=== PATIENT | male | born 1940 | race Caucasian/White ===

== ENCOUNTER → 2016-10-11 | Outpatient (CLI) | payer OTHER ==
[~2016-10-11] MED LIST: ATOR10TA88 PO; LISI10TA PO; MULT-506 PO; TAMS0.4C38 PO
[2016-10-11 12:25] LABS: BASO % 0.5 %; BASO ABS # 0.03 K/uL (0-0.2); COMPLETE YES; EOS % 1.9 %; HEMATOCRIT 44.2 % (42-52); IG% 0.3 %; LYMPH % 20.4 %; LYMPH ABS # 1.27 K/uL (1.2-3.4); MEAN CELL VOLUME 88.6 fL (80-100); MEAN CORPUSCULAR HEMOGLOBIN 31.3 pg (25-34); MEAN CORPUSCULAR HGB CONC 35.3 g/dl (32-36); MONO % 9.8 %; NEUT % 67.1 %; PLATELET COUNT 213 K/uL (130-400); RED BLOOD COUNT 4.99 M/uL (4.7-6.1); WHITE BLOOD COUNT 6.24 K/uL (4.8-10.8)
[2016-10-11 12:48] LABS: ALT/SGPT 22 U/L (12-78); BLOOD UREA NITROGEN 17 mg/dl (7-18); BUN/CREATININE RATIO 15.1 (10-20); CALCIUM 9.7 mg/dl (8.5-10.1); CARBON DIOXIDE 24 mmol/L (21-32); CHLORIDE 106 mmol/L (98-107); CHOLESTEROL 216 mg/dl (0-200); GLUCOSE 99 mg/dl (70-99); POTASSIUM 4.1 mmol/L (3.5-5.1); SODIUM 137 mmol/L (136-145); TRIGLYCERIDES 410 mg/dl (0-150)
[2016-10-11 12:58] LABS: ALB/GLOB RATIO 0.9 (0.9-2); ALKALINE PHOSPHATASE 60 U/L (45-117); AST/SGOT 17 U/L (15-37); CHOLESTEROL/HDL RATIO 6.4; HDL CHOLESTEROL 34 mg/dl
== END | disposition home or self-care (01) ==
LOC: C.LABPBG 10:49
PROVIDERS: ATTEND Urology
DX: N52.9 Male erectile dysfunction, unspecified (principal); R35.0 Frequency of micturition; E78.5 Hyperlipidemia, unspecified; I10 Essential (primary) hypertension; R53.83 Other fatigue

== ENCOUNTER → 2017-04-25 | Day surgery (SDC) | payer OTHER ==
[2017-04-23 07:54] VITALS: Ht 165.1 cm; Wt 69.5 kg
[~2017-04-25] VITALS: Ht 165.1 cm; Wt 69.5 kg
[~2017-04-25] MED LIST changes: +500ML BSS 0.3ML EPI 1:1000PF IRRIG ONE; +ACETAMINOPHEN 325 MG TAB PO PRN; +AMVISC PLUS 0.8ML SYRINGE INT OCU ONE; -ATOR10TA88 PO; +ATROPINE SULFATE 0.1 MG/ML 5ML SYR IV PRN; +AcetaZOLAMIDE 250 MG TAB PO SCH; +BETAXOLOL HCL 0.25% OP SUSP PER DROP CHARGE OPR SCH; +BRIMONIDINE TART 0.2% OP SOLN PER DROP CHARGE ONE; +BSS FLUSH ONE; +ENDOCOAT 0.85ML SYRINGE INT OCU ONE; +EpHEDrine SULFATE INJ 50 MG/ML AMP IV PRN; +EpINEphrine INJ 1MG/ML AMP 1 MG/ML AMP ONE; +LACTATED RINGER'S 1000ML 500 ML IV SCH; +LIDOCAINE 4% OP SOLN DROP CHARGE ONE; +LIDOCAINE 4% OP SOLN DROP CHARGE OPR SCH; +LIDOCAINE HCL 1% MPF 2 ML VIAL ONE; -LISI10TA PO; +LOSA50TA6 PO; +MIDAZOLAM HCL 1 MG/ML 2ML VIAL ONE; +MIX: 4ML BSS 1ML EPI 1:1000 PF INSTIL ONE; +MOXIFLOXACIN OPH SOLN PER DROP CHARGE ONE; +OCUCOAT 1 ML SOLN IO ONE; +ONDANSETRON INJ 2 MG/ML 2 ML VIAL IV PRN; +PHENYLEPHRINE HCL 10% OP SOLN PER DROP CHARGE OPR SCH; +POVIDONE-IODINE OP SOLN 30 ML BTL ONE; +PROPARACAINE 0.5% OP SOLN PER DROP CHARGE OPR SCH; +PROPARACAINE HCL 0.5% OP SOLN 15 ML BTL OPR ONE; +TOBRAMYCIN/DEXAMETHASONE OPH OINT PER APPLN CHARGE ONE
--- NOTE | 2017-04-25 08:42 | History & Physical Bridge - [place] ---
H&P Re-Evaluation Bridge Note: I have examined the patient, reviewed the History & Physical and in the interval since the performance of the History & Physical I have noted the following changes of clinical significance: Planning Femto Laser No changes noted
[2017-04-25] MEDS: PHENYLEPHRINE HCL 2.5% OP SOLN PER DROP CHARGE OPR SCH ×2 (08:50→08:55)
[2017-04-25] MEDS: TROPICAMIDE 1% OP SOLN PER DROP CHARGE OPR SCH ×2 (08:51→08:56)
[2017-04-25] MEDS: CYCLOPENTOLATE HCL 1% OP SOLN PER DROP CHARGE OPR SCH ×2 (08:52→08:57)
[2017-04-25] MEDS: MOXIFLOXACIN OPH SOLN PER DROP CHARGE OPR SCH ×2 (08:53→09:06)
--- NOTE | 2017-04-25 10:02 | [facility] Operative Report ---
Operative Report Date of Service Apr 25, 2017. Operative Report 1. PREOPERATIVE DIAGNOSIS: Senile nuclear cataract, right eye. 2. POSTOPERATIVE DIAGNOSIS: Senile nuclear cataract, right eye. 3. PROCEDURE: Phacoemulsification of right cataract with posterior chamber lens implant, type Mckay, model [id number], power +20.0 diopters. ANESTHESIA: Local standby. SURGEON: Dr. Lebron. COMPLICATIONS: None. OPERATING TIME: 10 minutes. 4. OPERATION AND FINDINGS: DESCRIPTION OF PROCEDURE: The right pupil was dilated. The patient was transported to the Femto Laser room. The Femto was used to make the primary incision, open the capsule, and break up the lens. The patient was transported to the operating room. The anesthetic was administered using a topical technique. The right eye was prepped and draped. A speculum was placed. A clear corneal incision was formed. The chamber was filled with Amvisc Plus and Endocoat. Epinephrine solution was used. A paracentesis was placed. A capsulorrhexis was performed. The nucleus was hydrodissected. The lens was removed with phacoemulsification. Time was 2.31 seconds. The aspiration unit was used to remove the cortex. The capsule was filled with Amvisc Plus. The lens implant was folded and placed into the capsule. The lens implant was rotated to the correct position. The incisions were hydrated. The Amvisc was aspirated. The wounds were secure. The chamber was deep. The pupil was round. Brimonidine, TobraDex ointment and Vigamox solution were placed. The speculum was removed. The patient was returned to the Recovery Room in stable condition. I attest to the content of the Intraoperative Record and any orders documented therein. Any exceptions are noted below. The scribe's documentation has been prepared in my presence, under my direction and personally reviewed by me in its entirety. I confirm that the note above accurately reflects all work, treatment, procedures, and medical decision making performed by me. I personally scribed for Gray Lebron M.D. ([email or web address]) on 04/25/17 at 10:02. Electronically submitted by Carol Hernández ([email or web address]).
[2017-04-25 10:04] VITALS: TEMP 36.6
--- NOTE | 2017-04-25 10:05 | Discharge Instructions-SurgCtr ---
Discharge Instructions Date of Service Apr 25, 2017. Visit Reason for Visit: Cataract Right Eye Discharge Discharge Diagnosis / Problem: lens implant right eye Discharge Goals Goal(s): Improve function Activity Recommendations Activity Limitations: resume your previous activity Lifting Limitations: no more than 10 pounds Exercise/Sports Limitations: gradually increase as tolerated May Resume Sexual Activity: when tolerated Shower/Bathe: tomorrow Driving or Machine Use: resume 1 day after discharge Anesthesia . Post Anesthesia Instructions: If you have had General Anesthesia or IV Sedation: * Do not drive today. * Resume driving when surgeon permits. * Do not make important decisions or sign legal documents today. * Call surgeon for: 1. Temperature elevations greater than 101 degrees F. 2. Uncontrollable pain. 3. Excessive bleeding. 4. Persistent nausea and vomiting. 5. Medication intolerance (nausea, vomiting or rash). * For nausea and vomiting use only clear liquids such as: tea, soda, bouillon until nausea subsides, then gradually increase diet as tolerated. * If you have any concerns or questions, call your surgeon's office. If physician is unavailable and it is an emergency, call 911 or go to the nearest emergency room. . Instructions / Follow-Up Instructions / Follow-Up ACTIVITY RECOMMENDATIONS: * Light activities. * Mild irritation and blurred vision are common for the first few days. * You may walk outside, read, watch television. * Redness around the white part of the eye is common. MEDICATIONS: Resume previous medications unless instructed otherwise by your surgeon. Start all eye drops at 1 pm today: * Eye drops (today and tomorrow): Prednisone - one drop in operative eye every 3 hours while awake Ofloxacin - one drop in operative eye every 3 hours while awake SPECIAL CARE INSTRUCTIONS: * Tape plastic shield over eye to sleep at night. Call your doctor at with any concerns or problems. FOLLOW UP VISIT: Follow-up with Dr Lebron at [place] office as scheduled. Diet Recommendations Home Diet: no limitations Procedures Procedures Performed: Right Cataract Phacoemulsification With Intraocular Lens Implant; Toric Lens Pending Studies Studies pending at discharge: no Medical Emergencies . Who to Call and When: Medical Emergencies: If at any time you feel your situation is an emergency, please call 911 immediately. . Non-Emergent Contact Non-Emergency issues call your: Gas Examiner Call Non-Emergent contact if: your pain is not controlled [phone] . . "Provider Documentation" section prepared by Gray Lebron. .
--- NOTE | 2017-04-25 10:22 | Anesthesia Progress Nt - [facility] ---
Anesthesia Post Op Note Date & Time Apr 25, 2017 at 10:22 Vital Signs Pain Intensity: 0 Vital Signs Past 12 Hours Date Time Temp Pulse Resp B/P (MAP) Pulse Ox O2 Delivery O2 Flow Rate FiO2 04/25/17 10:04 36.6 55 16 153/74 (100) 95 Room Air 04/25/17 09:41 60 16 198/102 93 04/25/17 09:36 60 20 180/116 91 04/25/17 08:37 36.4 61 20 157/86 (109) 96 Room Air Notes Mental Status: alert / awake / arousable, participated in evaluation Pt Amnestic to Procedure: Yes Nausea / Vomiting: adequately controlled Pain: adequately controlled Airway Patency, RR, SpO2: stable & adequate BP & HR: stable & adequate Hydration State: stable & adequate Anesthetic Complications: no major complications apparent
[2017-04-25 10:28] VITALS: BP 161/82; PULSE 56; O2SAT 96
== END | disposition home or self-care (01) ==
LOC: X.SURG 08:03
PROVIDERS: ATTEND Specialist
DX: H25.11 Age-related nuclear cataract, right eye (principal); I10 Essential (primary) hypertension; Z80.42 Family history of malignant neoplasm of prostate

== ENCOUNTER 2022-10-06 05:03 | Observation (INO) ==
--- NOTE | 2022-09-07 19:57 | PAT Medication Instructions ---
Medication Instructions Date of Service September 07, 2022 Home Medications Medication Instructions Recorded diclofenac sodium 1 % topical gel 2 g topical QID PRN joint pain 10/20/20 #100 grams sildenafil 50 mg tablet 50 mg PO DAILY PRN sexual activity 09/28/21 #20 tabs cholecalciferol (vitamin D3) 50 mcg (2,000 unit) capsule 50 mcg PO QAM diclofenac sodium 1 % topical gel 2 g topical QID PRN joint pain sllzedvrhkzw-pth-mglnr acid-vit K-lycop 400 mcg-20 mcg-370 mcg tablet (Men's 50 Plus Multivitamin) 1 tab PO QAM sildenafil 50 mg tablet 50 mg PO DAILY PRN sexual activity allopurinol 100 mg tablet 100 mg PO DAILY PRN gout flare up amlodipine 5 mg tablet 5 mg PO QAM hydrochlorothiazide 12.5 mg capsule 12.5 mg PO QAM ASK your surgeon for instructions diclofenac sodium 1 % topical gel 2 g topical QID PRN joint pain STOP taking 24 hours before surgery sildenafil 50 mg tablet 50 mg PO DAILY PRN sexual activity DO NOT take the morning of surgery cholecalciferol (vitamin D3) 50 mcg (2,000 unit) capsule 50 mcg PO QAM zouxeelggzty-aps-iogij acid-vit K-lycop 400 mcg-20 mcg-370 mcg tablet (Men's 50 Plus Multivitamin) 1 tab PO QAM hydrochlorothiazide 12.5 mg capsule 12.5 mg PO QAM Take morning of surgery With a small sip of water, OTHERWISE NOTHING TO EAT OR DRINK AFTER MIDNIGHT: allopurinol 100 mg tablet 100 mg PO DAILY PRN gout flare up (if needed) amlodipine 5 mg tablet 5 mg PO QAM Other Notes If you have any questions please call us at [phone] or [phone] or [phone] or [phone]
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
[2022-10-06] MEDS ORDERED: ACETAMINOPHEN 500 MG TAB PO SCH (06:00)
[2022-10-06] MEDS ORDERED: LR 60ML/HR IV SCH (06:00)
[2022-10-06] MEDS ORDERED: ceFAZolin 2000MG 2,000 MG/15 ML SYR IV SCH (06:00)
[2022-10-06] MEDS ORDERED: TRANEXAMIC ACID 1,000 MG **IV Intra-op IV SCH (06:00)
[2022-10-06] MEDS ORDERED: CeleBREX 200 MG CAP PO SCH (06:00)
[2022-10-06] MEDS ORDERED: FAMOTIDINE 20 MG TAB PO SCH (06:00)
[2022-10-06] MEDS ORDERED: LR 500ML BOLUS, THEN 15ML/HR IV SCH (06:00)
[2022-10-06] MEDS ORDERED: dexAMETHasone**PF** 10 MG/ML VIAL IV SCH (06:00)
[2022-10-06] MEDS ORDERED: METOCLOPRAMIDE HCL 10 MG TABLET PO SCH (06:00)
[2022-10-06] MEDS ORDERED: BUPIVACAINE 0.5 % 5 MG/1 ML PF 10ML VIAL ONE (06:23)
[2022-10-06] MEDS ORDERED: ONDANSETRON INJ 2 MG/ML 2 ML VIAL IV PRN ×2 (06:34→11:18)
[2022-10-06] MEDS ORDERED: fentaNYL citrate PF 100 MCG/2 ML VIAL IV PRN (06:34)
[2022-10-06] MEDS ORDERED: ePHEDrine sulfate 50 MG/ML AMP IV PRN (06:34)
[2022-10-06] MEDS ORDERED: ATROPINE SULFATE 0.1 MG/ML 10ML SYR IV PRN (06:34)
[2022-10-06] MEDS ORDERED: DEXAMETHASONE SOD INJ 4 MG/ML VIAL ONE (06:41)
[2022-10-06] MEDS ORDERED: fentaNYL citrate PF 100 MCG/2 ML VIAL ONE (06:41)
[2022-10-06] MEDS ORDERED: LIDOCAINE 2% 2 ML VIAL/AMP(20MG/ML) INFIL ONE (06:41)
[2022-10-06] MEDS ORDERED: MIDAZOLAM HCL 1 MG/ML 2ML VIAL ONE (06:41)
[2022-10-06] MEDS ORDERED: ONDANSETRON INJ 2 MG/ML 2 ML VIAL ONE (06:41)
[2022-10-06] MEDS ORDERED: PROPOFOL IV EMULSION 10 MG/ML 20 ML VIAL IV ONE (06:41)
--- NOTE | 2022-10-06 06:52 | History & Physical Bridge Note ---
Date of Service October 06, 2022 History & Physical Bridge Note I have examined the patient, reviewed the History & Physical and in the interval since the performance of the History & Physical I have noted the following changes of clinical significance: no changes noted
[2022-10-06] MEDS ORDERED: BUPIVACAINE/EPINEPHRINE 0.5% MPF 1:200,000 30 ML VIAL ONE (06:59)
[2022-10-06] MEDS ORDERED: VANCOMYCIN HCL 1000MG/20ML VIAL ONE (06:59)
[2022-10-06] MEDS ORDERED: ePHEDrine sulfate 50 MG/5 ML SYR ONE (07:13)
[2022-10-06] MEDS ORDERED: PHENYLEPHRINE 100MCG/ML 5ML SYR ONE (07:22)
[2022-10-06] MEDS ORDERED: PHENYLEPHRINE HCL 10 MG/ML VIAL ONE (07:22)
[2022-10-06] MEDS ORDERED: VASOPRESSIN 20 UNIT/ML VIAL ONE (08:03)
--- NOTE | 2022-10-06 08:56 | Operative Report ---
PG Post Operative Report Pre & Post Diagnosis Operation Date: 10/06/22 07:00 Pre-Op Diagnosis: Right Hip Degenerative Joint Disease Post-Op Diagnosis: Right Hip Degenerative Joint Disease I identified the patient and participated in the time-out.: Yes Procedure Operation Date: 10/06/22 07:00 Actual Procedures p Right Total Hip Arthroplasty(Right) - Josep Alvarez MD Surgeon Josep Alvarez MD Physician Extender Shukri Mac PA-C Estimated Blood Loss 100 Findings Consistent with Post-Op Diagnosis Operative findings revealed advanced right hip DJD. He had extensive grade 4 tcuo-vw-vgkg disease the femoral head and acetabulum. He does have significant scarring of the soft tissues around the hip to the previous surgery. Specimens Right femoral head sent for pathology Anesthesia Type Spinal MAC Complications none Disposition Accompanied Patient To Recovery: No Indications Patient is an 82-year-old very active gentleman said a long history of hip problems. He had some unspecified hip surgery as a child. He had some hardware placed and then removed. Over the past several years he is developed increased hip pain and discomfort. He failed all conservative measures. He elected proceed with total hip arthroplasty. Due to his history of surgery on this leg before the intramedullary canal we elect to place a cemented implant to optimize his chance of success. Description of Procedure Operative implants consist of: 1 Biomet G7 size 56 mm acetabular shell. 2. [place] eliminator. 3. 6.5 cancellous acetabular screws 135 mm length 125 mm length. 4. Highly cross-linked polyethylene liner with a 56 mm outer diameter and 36 mm inner diameter. 5. DePuy [place] size 2 standard cemented femoral stem. 6. +5/36 mm metal articular ball. The patient was taken the operating, identified, and placed on the operating table supine position architectures were properly padded. IV antibiotics tried by anesthesia team. A spinal anesthetic had been implemented holding area. Patient was then placed in the left lateral decubitus position. Axillary roll was placed. Stulberg hip positioner was used for positioning. The right hip and leg were then prepped and draped in the usual sterile fashion. A posterior lateral posterior right hip was then performed through a curvilinear incision centered over the greater trochanter. I did use a portion of his pre vious incision at the upper part. Sharp dissection Through the subcutaneous tissue down the IT band gluteal fascia the IT band gluteal fascia incised longitudinally in line with skin incision. The IT band and gluteal fascia then incised longitudinally. I did have to dissect this off the vastus lateralis. The external rotators and the posterior joint capsule were then released and the posterior aspect the hip as a single layer. Great care was taken throughout the procedure protect the sciatic nerve at all times. Hip was internally rotated. A femoral neck osteotomy cut was made just above the lesser trochanter about 5 mm. The femoral head neck was removed and sent for pathology. The femur was retracted anteriorly. Attention drawn the acetabulum. The acetabulum was excised. The pulmonary fat was excised. Sequential reaming the acetabular was then performed again with size 47 and progressing up to a 55. I did use a 56 reamer and then placed a 56 mm Biomet G7 acetabular shell in about 40 degrees lateral opening and 20 degrees of anteversion. Was fixed with two 6.5 cancellous acetabular screws. Trial liner was placed. Attention drawn the femur. The proximal femur was entered with a [place] cutter followed by canal finder and lateralizing reamer. Then broached begin the size 1 and progressing to a 2. We got a pretty tight fit with a 2 and I did not feel there is any need to broach for a very as were using cement. We then trialed the hip. The +5 articular ball provide full stability. Soft tissue tension seemed just a little bit lax but appropriate and I felt like his leg lengths seemed appropriate. Of note, he did have a slight leg length discrepancy with the side being actually little longer than the other side due to his history of surgery and pathology in this leg as a young child. Attention drawn to placing permanent components. All trial components were removed. An apex eliminator was placed. Highly cross-linked polyethylene liner was placed. A distal cement restrictor was placed. A double batch [place] G cement was mixed with an additional gram of vancomycin due to his history of surgery in the past. I injected this into the canal and then sized to [place] standard offset femoral stem was placed. All extraneous cement was removed. Once the cement hardened a +5/36 mm metal articular ball was placed. Hip was located once again found to be stable. Soft tissue tension seemed appropriate. We tried to equalize his leg lengths. Attention drawn to closing. Wounds irrigated cosigns pulsatile lavage solution. I did inject locally with 50 cc of absent Marcaine with epinephrine. Posterior hip joint capsule along with the external rotators were then repaired through drill holes in the posterior trochanter with #2 Tycron suture. The IT band gluteal fascia then closed in 1 PDS suture running fashion to subcutaneous tissues then closed with 2 layers the deep layer #1 Vicryl suture in the subcutaneous tissues with 2-0 Dexon suture in a buried interrupted fashion the skin was closed skin whitney. Leg was then cleaned and dried and sterile dressing was Xeroform, 4 fours, ABD pad, foam tape was applied. Patient then transferred to the recovery in stable condition. Patient tolerated procedure well and there were no complications. Shukri Mac, my physician food and beverage assistant manager, was present for the entire procedure. His assistance was essential and required for appropriate patient positioning, prepping and draping, surgical exposure, performing the technical details of the operation, placement the implants, closure of the wound, and placement of the sterile bandage. I attest to the content of the Intraoperative Record and any orders documented therein. Any exceptions are noted below.
--- NOTE | 2022-10-06 09:10 | XRay Report ---
XR hip 1V RT w pelvis CLINICAL HISTORY: Postoperative evaluation. COMPARISON: Right hip radiographs September 25, 2022. FINDINGS: Alignment of the total right hip arthroplasty is anatomic. There is no periprosthetic frac ture. No unexpected radiopaque foreign bodies are present. There are skin whitney and acetabular scre ws. Brachytherapy seeds within the prostate are incidentally noted. IMPRESSION: Expected findings following total right hip arthroplasty. ACT 112: Negative or not required by law. Electronically signed by: Carlos De La Torre M.D. 10/06/2022 9:08 AM
--- NOTE | 2022-10-06 10:26 | Anesthesiology Progress Note ---
Date of Service October 06, 2022 Anesthesia Post Procedure Vital Signs Vital Signs: Temp Pulse Pulse Resp BP Pulse Ox O2 Del Method 10/06/22 10:03 97.3 F L 76 17 134/71 95 Room Air 10/06/22 09:10 79 17 127/61 97 Oxymask 10/06/22 09:00 81 21 126/56 L 94 Oxymask 10/06/22 09:20 97.2 F L 81 20 125/67 93 Room Air 10/06/22 08:50 82 19 121/62 94 Oxymask 10/06/22 08:43 97.2 F L 89 18 129/63 94 Oxymask 10/06/22 05:47 97.9 F 64 18 136/69 95 Room Air O2 Flow Rate 10/06/22 10:03 10/06/22 09:10 5 10/06/22 09:00 5 10/06/22 09:20 10/06/22 08:50 5 10/06/22 08:43 5 10/06/22 05:47 Transfer of Care Handoff Completed per policy Notes Mental Status: alert / awake / arousable and participated in evaluation Patient Amnestic to Procedure: Yes Nausea / Vomiting: adequately controlled Pain: adequately controlled Airway Patency, RR, SpO2: stable & adequate BP & HR: stable & adequate Hydration State: stable & adequate Neuraxial Anesthesia: was administered and sensory block is resolving Anesthetic Complications: no major complications apparent and Pt Satisfied with anesthetic care
[2022-10-06] MEDS ORDERED: NALOXONE HCL 0.4 MG/1 ML VIAL/CARP IV PRN (11:18)
[2022-10-06] MEDS ORDERED: MAGNESIUM HYDROXIDE SUSP 30 ML UDC PO PRN (11:18)
[2022-10-06] MEDS ORDERED: MULTIVIT MIN FOLIC VIT K LYCOP PO SCH (11:18)
[2022-10-06] MEDS ORDERED: HYDROmorphone INJ 0.5 MG/0.5 ML SYR IV PRN (11:18)
[2022-10-06] MEDS ORDERED: allopurinoL 100 MG TAB PO PRN (11:18)
[2022-10-06] MEDS ORDERED: ALFUZOSIN 10 MG PO SCH (11:18)
[2022-10-06] MEDS ORDERED: bisacodyL 10 MG SUPP PR PRN (11:18)
[2022-10-06] MEDS ORDERED: [UNRECOGNIZED DRUG - OTHER] PO SCH (11:18)
[2022-10-06] MEDS ORDERED: METOCLOPRAMIDE HCL INJ 5 MG/ML 2 ML VIAL IV PRN (11:18)
[2022-10-06] MEDS ORDERED: SENNA 8.6 MG TAB PO SCH ×2 (11:18→21:00)
[2022-10-06] MEDS ORDERED: ALUMINUM/MAGNESIUM SUSP 30 ML UDC PO PRN (11:18)
[2022-10-06] MEDS ORDERED: traMADol HCL 50 MG TABLET PO PRN (11:18)
[2022-10-06] MEDS: SODIUM CHLORIDE 0.9% 1,000 ML IV SCH ×2 (12:07→22:49)
[2022-10-06] MEDS: KETOROLAC TROMETHAMINE 15 MG/ML VIAL IV SCH ×3 (12:07→22:20)
[2022-10-06] MEDS ORDERED: TRANEXAMIC ACID / 0.7% NACL 1,000 MG/100 ML BAG IV SCH (15:00)
[2022-10-06] MEDS: DOCUSATE SODIUM 100 MG CAP PO SCH ×2 (15:46→21:03)
[2022-10-06] MEDS: amLODIPine BESYLATE 5 MG TAB PO SCH (15:46)
[2022-10-06] MEDS: TAMSULOSIN HCL 0.4 MG CAP PO SCH ×2 (15:46→15:56)
[2022-10-06] MEDS: ASPIRIN 81 MG ECTAB PO SCH ×2 (15:46→21:03)
[2022-10-06] MEDS: hydroCHLOROthiazide 25 MG TAB PO SCH (15:47)
[2022-10-06] MEDS: MULTIVITAMIN TAB PO SCH (15:48)
[2022-10-06] MEDS: ACETAMINOPHEN 500 MG TAB PO SCH ×2 (15:49→21:02)
[2022-10-06] MEDS: VIBEGRON 75 MG TAB PO SCH (15:51)
[2022-10-06] MEDS: ceFAZolin 1000MG 1,000 MG/7.5 ML SYR IV SCH ×2 (15:52→22:20)
[2022-10-06] MEDS: ASCORBIC ACID 500 MG TAB PO SCH (17:50)
[2022-10-07] MEDS: KETOROLAC TROMETHAMINE 15 MG/ML VIAL IV SCH (05:06)
[2022-10-07] MEDS: ACETAMINOPHEN 500 MG TAB PO SCH (05:07)
[2022-10-07 07:36] LABS: Basophils # (auto) 0.01 K/uL (0.00-0.20); Basophils % (auto) 0.1 %; Hematocrit (blood only) 34.1 % (42.0-52.0); Hemoglobin 12.2 g/dl (14.0-18.0); Immature Granulocytes # (auto) 0.14 K/uL (0.01-0.20); Immature Granulocytes % (auto) 0.8 %; Lymphocytes # (auto) 0.52 K/uL (1.20-3.40); Lymphocytes % (auto) 3.1 %; Mean Corpuscular Hemoglobin 30.2 pg (25.0-34.0); Mean Corpuscular Hgb Conc 35.8 g/dL (32.0-36.0); Mean Corpuscular Volume 84.4 fL (80.0-100.0); Mean Platelet Volume 10.2 fL (9.4-12.4); Monocytes # (auto) 1.06 K/uL (0.11-0.59); Monocytes % (auto) 6.3 %; Neutrophils # (auto) 15.21 K/uL (1.40-6.50); Neutrophils % (auto) 89.7 %; Platelet Count 283 K/uL (130-400); RDW Coefficient of Variation 12.2 % (11.5-14.5); RDW Standard Deviation 37.2 fL (36.4-46.3); Red Blood Count 4.04 M/uL (4.70-6.10); White Blood Count 16.94 K/ul (4.8-10.8)
[2022-10-07] MEDS ORDERED: dexAMETHasone 10 MG in SYRINGE 0 ML IV SCH (08:00)
[2022-10-07 08:21] LABS: Calcium 9.3 mg/dl (8.6-10.3); Potassium 3.7 mmol/L (3.5-5.1)
[2022-10-07 08:26] LABS: BUN Creatinine Ratio 19.8 (10-20); Est GFR (African American) 60.3 ml/min
--- NOTE | 2022-10-07 08:40 | Orthopedic Progress Note ---
Date of Service October 07, 2022 Assessment & Plan (1) Status post right hip replacement: 82-year-old gentleman postop day 1 from right knee replacement doing well. Pain is controlled. Hip is located. He is neurologically intact. He is hoping to go home. Plan: 1. DVT prophylaxis including thigh-high teds, SCDs, aspirin twice a day. 2. PT OT. Weight-bear as tolerated. Right total hip protocol. Does [place] hip precautions. 3. Pain control doing okay with current pain regimen. 4. Disposition - plan to discharge to home with some home health later today Subjective . 82-year-old gentleman postop day 1 from right hip replacement. He is doing quite well. Rates his pain at a 2/10. He has been up walking around and feels like he does not really even need the walker. No chest pain or shortness of breath. Not feeling dizzy or lightheaded. Hoping to go home today. Review of Systems All systems reviewed & are unremarkable except as noted in HPI & below. Physical Exam . Physical examination was a pleasant only male. Sitting up in his bedside chair eating breakfast looks quite comfortable. Examination of the right hip reveals dressing clean dry and intact. Leg lengths are equal. He can dorsiflex and plantarflex his foot appropriately. He is neurologically intact. Neck trachea midline, no thyromegaly Respiratory normal respiratory effort, lungs clear to auscultation Cardiovascular RRR, no murmur, no edema Gastrointestinal (Abdomen) normal bowel sounds, soft, nontender, no hepatosplenomegaly Results & Data Results & Data Laboratory Results . Hemoglobin is 12.2. Hematocrit is 34.1. Electrolytes are stable. Diagnostic Findings . PG Care Time/CCT Total # of Minutes Spent Total Time Spent with Patient: Total time spent is greater than 50% in coordination of care (as documented) at patient's floor/unit and/or counseling patient: Coding Level of Care Code 38037 Post Operative Follow-Up Diagnoses Status post right hip replacement Z96.641
[2022-10-07] MEDS: ASPIRIN 81 MG ECTAB PO SCH (08:58)
[2022-10-07] MEDS: DOCUSATE SODIUM 100 MG CAP PO SCH (08:58)
[2022-10-07] MEDS: hydroCHLOROthiazide 25 MG TAB PO SCH (08:58)
[2022-10-07] MEDS: TAMSULOSIN HCL 0.4 MG CAP PO SCH (08:59)
[2022-10-07] MEDS: MULTIVITAMIN TAB PO SCH (08:59)
[2022-10-07] MEDS: VIBEGRON 75 MG TAB PO SCH (08:59)
[2022-10-07] MEDS: ASCORBIC ACID 500 MG TAB PO SCH (08:59)
[2022-10-07] MEDS: amLODIPine BESYLATE 5 MG TAB PO SCH (08:59)
--- NOTE | 2022-10-12 07:42 | Discharge Summary ---
Date of Service October 12, 2022 Discharge Data Procedures Performed Operation Date: 10/06/22 07:00 Actual Procedures p Right Total Hip Arthroplasty(Right) - Josep Alvarez MD Hospital Course (1) Status post right hip replacement: This is a 82 year old patient admitted on 10/06/22 and underwent total hip arthroplasty. He tolerated the procedure well and there were no complications. Transferred to the PACU post op and later to the orthopedic floor for further care. He was given ancef for antibiotic prophylaxis. He was also given DONOVAN stockings, SCDs, and aspirin for DVT prophylaxis. Hemoglobin, hematocrit, and vital signs were monitored during his hospital stay and remained stable. Did not require any blood transfusions. There were no complications during his hospital stay. By post op day #1 the patient was tolerating a regular diet, pain was reasonably controlled with oral pain medicine, and he was participating in physical therapy. On post op day #1 the patient was discharged home and set up with home health care. He was given printed discharge instructions including prescriptions for extra strength tylenol, aspirin, ketorolac, zofran, senokot, flomax, and tramadol. Continue hip precautions. Continue physical therapy, weight bearing as tolerated. Continue DONOVAN stockings. Follow up approximately 2 weeks post op or sooner if there are problems or concerns. Coding Level of Care Code None Diagnoses Status post right hip replacement Z96.641
== END 2022-10-07 10:38 | disposition home health service (06) ==
LOC: ASU 05:03 → 3W 05:03